=== PATIENT | male | born 1960 | race Caucasian/White ===

== ENCOUNTER 2017-11-29 13:53 | Emergency (ER) | payer MEDICARE, OTHER ==
--- NOTE | 2017-11-29 14:14 | ED Physician Documentation ---
PD HPI HEENT - Stated complaint Stated Complaint: MOUTH PX/SWOLLEN FACE - Chief complaint Chief Complaint: Heent - History obtained from History obtained from: Patient - History of Present Illness Timing - onset: How many days ago (2) Timing - duration: Days (2) Timing - details: Abrupt onset, Still present Location: Tooth (had pain and swelling around right upper tooth 2 days ago and developed right cheek swelling with some redness overnight into today. Called [facility] and they gave appt for early Jan.) Improves: No: Medication (took some Ibuprofen at home.) Associated symptoms: Facial swelling. No: Fever, Congestion, Swollen nodes, Headache Similar symptoms before: Diagnosis (dental caries with infections. Has been getting teeth extracted few at a time at [facility]. Hoping to get rest out and get dentures, but is limited financially. Has Medicare and looking for provider that would take it.) Review of Systems Constitutional: denies: Fever, Chills, Myalgias Eyes: denies: Photophobia Nose: reports: Sinus pressure / pain. denies: Rhinorrhea / runny nose, Congestion Throat: reports: Dental pain / toothache. denies: Sore throat Cardiac: denies: Chest pain / pressure GI: denies: Nausea, Vomiting Skin: denies: Rash PD PAST MEDICAL HISTORY - Past Medical History Cardiovascular: None Respiratory: None Neuro: None - Present Medications Home Medications: Ambulatory Orders Medication Instructions Recorded Confirmed Amoxicillin 500 mg PO TID #20 capsule 11/29/17 HYDROcod/ACETAM 5/325 [[place] 5/325] 1 tab PO Q6H PRN #20 tablet 11/29/17 Naproxen [Naprosyn] 500 mg PO BID PRN #20 tablet 11/29/17 - Allergies Allergies/Adverse Reactions: Allergies Allergy/AdvReac Type Severity Reaction Status Date / Time No Known Drug Allergies Allergy Verified 11/29/17 14:08 - Living Situation Living Arrangement: reports: At home PD ED PE NORMAL - Vitals Vital signs reviewed: Yes - General General: Alert and oriented X 3, No acute distress, Well developed/nourished - HEENT HEENT: PERRL, EOMI (without pain). No: Dentition benign (marked caries and multiple teeth priorly extracted. Right canine with decay to gumline and gum redness and swelling without fluctuance. Right cheek with swelling and some redness, extending to lower part of lower eyelid. No fluctuance nor firmness felt. ) - Neck Neck: Supple, no meningeal sign, No adenopathy - Cardiac Cardiac: RRR, No murmur - Respiratory Respiratory: Clear bilaterally - Derm Derm: Normal color, Warm and dry - Neuro Neuro: Alert and oriented X 3, No motor deficit, Normal speech Results - Vitals Vitals: Vital Signs - 24 hr 11/29/17 11/29/17 14:04 14:50 Temperature 36.6 C Heart Rate 68 74 Respiratory 15 18 Rate Blood Pressure 158/91 H 189/85 H O2 Saturation 99 98 Oxygen O2 Source Room air PD MEDICAL DECISION MAKING - ED course Complexity details: considered differential (dental infection of gum without palpable abscess, with cellulitic changes to right cheek and lower part of lower eyelid. No pain with eye movement. Does not seem like orbital cellulitis. ), d/w patient Departure - Departure Disposition: 01 Home, Self Care Clinical Impression: Infected dental caries Condition: Stable Record reviewed to determine appropriate education?: Yes Instructions: ED Abscess Dental Follow-Up: Michael Velazquez DDS [Provider Admit Priv/Credential] - Prescriptions: Amoxicillin 500 mg PO TID #20 capsule HYDROcod/ACETAM 5/325 [[place] 5/325] 1 tab PO Q6H PRN #20 tablet PRN Reason: Pain Naproxen [Naprosyn] 500 mg PO BID PRN #20 tablet PRN Reason: Pain Comments: Rinse with mouthwash or antiseptic to 3 times a day to reduce germs at the gumline. Amoxicillin 3 times a day for a week for the infection. Naproxen twice daily with food for pain and inflammation. Add hydrocodone if needed for pain. Follow-up with the [facility] dental clinic at their earliest available appointment. Alternatively you could try Dr. Velazquez office (oral surgery in [place]) and see if they accept your insurance or such and would be able to see you sooner. Return if not better over the next several days to week. Discharge Date/Time: 11/29/17 14:50
[2017-11-29] MEDS ORDERED: AMOXICILLIN 250 MG CAPSULE PO STA (14:29)
[2017-11-29] MEDS ORDERED: NAPROXEN 250 MG TABLET PO STA (14:29)
[2017-11-29 14:52] VITALS: BP 189/85
== END 2017-11-29 14:50 | disposition home or self-care (01) ==
LOC: ED 13:53
DX: K04.7 Periapical abscess without sinus (principal); K02.9 Dental caries, unspecified; L03.211 Cellulitis of face
CPT/HCPCS: 99283; A9270

== ENCOUNTER 2022-11-11 17:42 | Emergency (ER) | payer MEDICARE, OTHER ==
[2022-11-11] MEDS ORDERED: BACITRACIN ZINC OINT 1 PACKET TOP STA (18:43)
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
[2022-11-11 19:26] VITALS: BP 120/74; O2SAT 100
== END 2022-11-11 19:21 | disposition home or self-care (01) ==
LOC: ED 17:42
DX: T22.012A Burn of unspecified degree of left forearm, initial encounter (principal); T23.062A Burn of unspecified degree of back of left hand, initial encounter; X10.2XXA Contact with fats and cooking oils, initial encounter
CPT/HCPCS: 99282; 99283; A9270